=== PATIENT | male | born 1960 | race Two or more races ===

== ENCOUNTER 2018-10-29 14:10 | Emergency (ER) | payer MEDICAID ==
[~2018-10-29] VITALS: Ht 167.6 cm; Wt 112.5 kg
--- NOTE | 2018-10-29 14:15 | NUR ---
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 Laceration about 2cm noted on L eyebrow, no active bleeding savanah. No LOC reported. HR 115 upon arrival, ERMD aware. AOx4, other VSS. Will cont to monitor.
[2018-10-29] MEDS ORDERED: Tetanus/Diptheria/Pertussis IM ONE (14:30)
[2018-10-29] MEDS ORDERED: Lidocaine 1% Plain 30 ml INJ ONE (14:30)
[2018-10-29] MEDS ORDERED: Ketorolac 60mg Inj IM ONE (14:30)
--- NOTE | 2018-10-29 15:16 | Emergency Room Report ---
History of Present Illness General Chief Complaint: Head Injury Source: Patient, EMS Present Illness HPI This patient states that he was at work when a 2 x 10 piece of plywood fell onto his left forehead. He states that he tried to stop it with his left hand but it hit his forehead and lacerated the skin on his face. He denies loss of consciousness. He denies headache or neck pain. He denies nausea. He has no other complaints. Allergies: Coded Allergies: No Known Allergies (Unverified , 10/29/18) Patient History Past Medical History: see triage record, HIV Social History: Denies: smoking, alcohol use, drug use Reviewed Nursing Documentation: PMH: Agreed; PSxH: Agreed Nursing Documentation-PMH Past Medical History: No History, Except For Hx Cardiac Problems: No - HIV Review of Systems All Other Systems: negative except mentioned in HPI Physical Exam Vital Signs Date Time Temp Pulse Resp B/P (MAP) Pulse Ox O2 Delivery O2 Flow Rate FiO2 10/29/18 14:09 98.8 115 18 153/93 (113) 96 Room Air Sp02 EP Interpretation: reviewed, normal General Appearance: no apparent distress, alert, GCS 15, non-toxic Head: normocephalic, other - Large irregular avulsed/gaping skin over the L. forehead through the eyebrow approximately 7cm in length. Eyes: bilateral eye normal inspection, bilateral eye PERRL, bilateral eye EOMI ENT: hearing grossly normal, normal pharynx, no angioedema, normal voice Neck: full range of motion, supple/symm/no masses Respiratory: chest non-tender, lungs clear, normal breath sounds, no respiratory distress, no retraction, no accessory muscle use, speaking full sentences Cardiovascular #1: regular rate, rhythm, no edema Rectal: deferred Musculoskeletal: back normal, gait/station normal, normal range of motion, non- tender Neurologic: alert, oriented x3, responsive, motor strength/tone normal, sensory intact, speech normal Psychiatric: judgement/insight normal, memory normal, mood/affect normal, no suicidal/homicidal ideation Skin: warm/dry, well hydrated, other - See above in head exam. Medical Decision Making Diagnostic Impression: Primary Impression: Facial laceration Additional Impression: Laceration of face with complication ER Course This patient suffered a large complex facial laceration that was gaping and through the left eyebrow. There was no evidence of involvement of the orbit or the extraocular muscles. Given how complicated this laceration was, I consulted Dr. Ricco Wright of board certified behavioral analyst. Dr. Wright was kind enough to come to the emergency department and do a bedside repair of the complicated multilayer facial laceration. Please see his consultation note for details. Also see the photographs of before and after repair attached to the electronic medical record. Patient will be placed on oral antibiotics and instructed to follow-up closely for wound care monitoring and suture removal. Last Vital Signs Date Time Temp Pulse Resp B/P (MAP) Pulse Ox O2 Delivery O2 Flow Rate FiO2 10/29/18 14:09 98.8 115 18 153/93 (113) 96 Room Air Status: improved Disposition: HOME, SELF-CARE Condition: Improved Scripts Unable to Obtain Active Prescriptions or Reported Meds Referrals: NOT CHOSEN IPA/,REFERRING (PCP) Lorna Fox DO Oct 29, 2018 15:16
[2018-10-29 16:11] VITALS: BP 133/68
[2018-10-29] MEDS ORDERED: Bacitracin Oint UD TOPIC ONE ×2 (17:20→17:30)
[2018-10-29 17:35] VITALS: BP 132/74
[2018-10-29] MEDS ORDERED: CEPHALEXIN500 MG ORAL (17:49)
[2018-10-29] MEDS ORDERED: ACETAMINOPHEN-1 EAC1 ORAL (17:49)
[2018-10-29 17:54] VITALS: BP 132/74
--- NOTE | 2018-10-29 17:54 | NUR ---
ER DISCHARGE NOTE: Patient is cleared to be discharged per ERMD, pt is aox4, on room air, with stable vital signs. pt was given dc and prescription instructions, pt was able to verbalize understanding, pt id band removed. pt is able to ambulate with steady gait. pt took all belongings.
== END 2018-10-29 17:54 | disposition home or self-care (01) ==
LOC: EDBD 14:10 → EMR 14:42
DX: S01.81XA Laceration without foreign body of other part of head, initial encounter (principal); B20 Human immunodeficiency virus [HIV] disease; W20.8XXA Other cause of strike by thrown, projected or falling object, initial encounter; Y92.9 Unspecified place or not applicable; Y99.0 Civilian activity done for income or pay; Z23 Encounter for immunization
CPT/HCPCS: 12053; 90471; 90715; 96372; 99283; J2001; Z7502